=== PATIENT | male | born 1955 | race Caucasian/White ===

== ENCOUNTER 2020-11-04 03:18 | Inpatient (IN) ==
[2020-11-04 04:01] LABS: Eosinophils # (auto) 0.02 K/uL (0-0.5); Eosinophils % (auto) 0.1 %; Hematocrit (blood only) 45.7 % (42-52); Hemoglobin 16.9 g/dL (14.0-18.0); Immature Granulocytes # (auto) 0.03 K/uL (0.00-0.02); Immature Granulocytes % (auto) 0.2 %; Lymphocytes # (auto) 0.94 K/uL (1.2-3.4); Lymphocytes % (auto) 6.9 %; Mean Corpuscular Hemoglobin 32.9 pg (25-34); Mean Corpuscular Volume 88.9 fL (80-100); Mean Platelet Volume 8.9 fL (7.4-10.4); Monocytes # (auto) 0.76 K/uL (0.11-0.59); Monocytes % (auto) 5.5 %; Neutrophils # (auto) 11.97 K/uL (1.4-6.5); Neutrophils % (auto) 87.3 %; Platelet Count 173 K/uL (130-400); RDW Coefficient of Variation 13.1 % (11.5-14.5); RDW Standard Deviation 42.7 fL (36.4-46.3); Red Blood Count 5.14 M/uL (4.7-6.1); White Blood Count 13.72 K/uL (4.8-10.8)
--- NOTE | 2020-11-04 04:04 | Emergency Department Note ---
Impression & Plan Acute GI bleeding ED Provider Note NAME: VINOD LAND AGE: 65 SEX: M ARRIVES VIA: Walk-In INFORMANT: Patient and the patient's ED PROVIDER(S): Jesusita Padilla DO CHIEF COMPLAINT: Rectal bleeding PLAN: Disposition: Admitted to the [facility] service Condition: Stable MEDICAL DECISION MAKING: This is a 65-year-old male patient who presents to the emergency department with rectal bleeding. H/H is stable. Vital signs are stable. However, the patient continues to have persistent episodes of melena and bright red bleeding per rectum while here in the emergency department. The patient has never had a colonoscopy. He is on low-dose aspirin for his history of CABG and coronary artery disease. He does continue to smoke. [facility] for [facility] management. Triage Nursing notes reviewed and agree with them. Additional history obtained from the patient's is at the bedside Vital Signs: reviewed and remarkable for hypertension Differential diagnosis: Upper GI bleed, lower GI bleed, hemorrhoidal bleeding Diagnostics interpreted by me: Cardiac Monitoring: Normal sinus rhythm at a rate of 81 Laboratory studies: See below HPI: 65/M arrives for evaluation of rectal bleeding. The patient developed diarrhea 2 days ago. He had some associated crampy abdominal pain. Over the past 12-14 hours, with each diarrheal bowel movement, there was either bright red bleeding or melena as he describes the stooling. The patient is not incontinent of the stool. He does note that eating foods causes some belly pain. He has a decreased appetite and has been avoiding eating because of the pain. The patient does take a low-dose aspirin because of his history of coronary artery disease. He is a smoker. ROS: See above HPI for pertinent positives & negatives. A total of 10 systems reviewed and were otherwise negative. PAST MEDICAL HISTORY:Coronary artery disease; hypercholesterolemia PAST SURGICAL HISTORY:CABG FAMILY HISTORY:See Below SOCIAL HISTORY:Lives with his ; smokes; occasionally drinks alcohol; is retired HOME MEDICATIONS:See list ALLERGIES:None VITALS:See Below PHYSICAL EXAMINATION: HEENT: Head - normocephalic and atraumatic Pupils are equal, round, and reactive to light. Extraocular eye muscles are intact, and sclera are anicteric. Nose - moist nasal mucosa without discharge. Mouth - moist buccal mucosa. Oropharynx is nonerythematous and there is no tonsillar exudate or edema noted. Neck: Supple; no JVD or cervical lymphadenopathy Heart: Regular rate and rhythm. There is a normal S1 and S2 with no murmurs, clicks, or gallops appreciated. Lungs: Clear to auscultation bilaterally with no wheezes, rales, or rhonchi. Abdomen: Soft, completely nontender, nondistended, with good bowel sounds. There are no palpable pulsatile masses or hepatosplenomegaly. There is no guarding, rigidity, or rebound noted. Extremities: No evidence of cyanosis, clubbing, or edema. There are easily palpable peripheral pulses. Skin: warm and dry with good turgor and no rashes. Rectal: Some light brown stool but moderate amount of melena. ED COURSE: Times/Reassessments: 0330: The patient was evaluated in room C6. A complete history and physical was performed. An order was placed for continuous cardiac monitoring. The patient was in a normal sinus rhythm at a rate of 81. An IV lock was initiated and labs are drawn as above. The patient was typed and screened. The patient did have multiple episodes of diarrhea and bloody bowel movements. He remained hemodynamically stable. I discussed the case with the [facility] hospitalist and they will evaluate for further management. Jesusita Padilla DO Past Med/Surg History Social History Smoking Status: Current every day smoker Tobacco Type: Cigarettes Feels Safe at Home: Yes Allergies Allergies Allergy/AdvReac Type Severity Reaction Status Date / Time No Known Allergies Allergy Unknown Verified 12/17/08 17:50 Home Meds Home Medications Medication Instructions Recorded Confirmed Aspirin Enteric Coated (Ecotrin Or 81 mg PO DAILY #0 12/19/08 Generic *) Metoprolol Tartrate (Lopressor) 50 mg PO BID #0 12/19/08 (Lopressor) Nitroglycerin (Nitrostat) 0.4 mg UT PRN #0 12/19/08 Rosuvastatin Calcium (Crestor *) 10 mg PO HS #0 12/19/08 Results & Data (ED) Vital Signs Vital Signs - 24 hr 11/04/20 03:23 11/04/20 04:00 11/04/20 04:04 Temperature 36.9 C Temperature Source Temporal Artery Scan Pulse Rate 92 H 86 80 Pulse Rate from SpO2 Sensor 78 80 Respiratory Rate 16 17 14 Respiratory Effort / Characteristics Non-Labored Spontaneous Respiratory Depth Normal Blood Pressure 139/74 138/74 Blood Pressure Mean 95 95 Pulse Oximetry 96 93 94 Oxygen Delivery Method Room Air Sepsis Recent Fever Within 48 Hours No Sepsis New/Unexplained Change in Mental Status No Sepsis Action Taken by Nursing No Action Required 11/04/20 04:09 11/04/20 04:30 11/04/20 05:00 Temperature Temperature Source Pulse Rate 82 81 Pulse Rate from SpO2 Sensor 82 81 Respiratory Rate 16 15 Respiratory Effort / Characteristics Respiratory Depth Blood Pressure 158/79 H 168/99 H Blood Pressure Mean 105 122 Pulse Oximetry 95 95 96 Oxygen Delivery Method Room Air Sepsis Recent Fever Within 48 Hours Sepsis New/Unexplained Change in Mental Status Sepsis Action Taken by Nursing Laboratory Data Result diagrams: 11/04/20 03:46 11/04/20 03:46 Lab Results 11/04/20 11/04/20 11/04/20 Range/Units 03:46 03:46 03:46 WBC 13.72 H (4.8-10.8) K/uL RBC 5.14 (4.7-6.1) M/uL Hgb 16.9 (14.0-18.0) g/dL Hct 45.7 (42-52) % MCV 88.9 (80-100) fL MCH 32.9 (25-34) pg MCHC 37.0 H (32-36) g/dL RDW Std Deviation 42.7 (36.4-46.3) fL RDW Coeff of Reta 13.1 (11.5-14.5) % Plt Count 173 (130-400) K/uL MPV 8.9 (7.4-10.4) fL Immature Gran % (Auto) 0.2 % Neut % (Auto) 87.3 % Lymph % (Auto) 6.9 % [place] % (Auto) 5.5 % Eos % (Auto) 0.1 % Baso % (Auto) 0.0 % Neut # (Auto) 11.97 H (1.4-6.5) K/uL Lymph # (Auto) 0.94 L (1.2-3.4) K/uL [place] # (Auto) 0.76 H (0.11-0.59) K/uL Eos # (Auto) 0.02 (0-0.5) K/uL Baso # (Auto) 0.00 (0-0.2) K/uL Immature Gran # (Auto) 0.03 H (0.00-0.02) K/uL Sodium 137 (136-145) mmol/L Potassium 4.3 (3.5-5.1) mmol/L Chloride 108 H (98-107) mmol/L Carbon Dioxide 22 (21-32) mmol/L Anion Gap 7.0 (3-11) BUN 13 (7-18) mg/dl Creatinine 0.89 (0.6-1.4) mg/dl Est Cr Clr Drug Dosing 102.6 ml/min Est GFR ( Amer) 102.5 Est GFR (Non-Af Amer) 88.5 BUN/Creatinine Ratio 15.1 (10-20) Glucose 146 H (70-99) mg/dl Calcium 8.6 (8.5-10.1) mg/dl Magnesium 2.0 (1.8-2.4) mg/dl Total Bilirubin 0.7 (0.2-1) mg/dl AST 34 (15-37) U/L ALT 68 (12-78) U/L Alkaline Phosphatase 92 (45-117) U/L Total Protein 7.8 (6.4-8.2) gm/dl Albumin 3.8 (3.4-5.0) gm/dl Globulin 4.0 (2.5-4.0) gm/dl Albumin/Globulin Ratio 1.0 (0.9-2) Lipase 82 (73-393) U/L Urine Color Urine Appearance (Clear) Urine pH (4.5-7.5) Ur Specific [place] (1.000-1.030) Urine Protein (Negative) Urine Glucose (UA) (Negative) Urine Ketones (Negative) Urine Blood (Negative) Urine Nitrite (Negative) Urine Bilirubin (Negative) Urine Urobilinogen (Negative) Ur Leukocyte Esterase (Negative) Blood Type A Positive Antibody Screen NEGATIVE 11/04/20 Range/Units Unknown WBC (4.8-10.8) K/uL RBC (4.7-6.1) M/uL Hgb (14.0-18.0) g/dL Hct (42-52) % MCV (80-100) fL MCH (25-34) pg MCHC (32-36) g/dL RDW Std Deviation (36.4-46.3) fL RDW Coeff of Reta (11.5-14.5) % Plt Count (130-400) K/uL MPV (7.4-10.4) fL Immature Gran % (Auto) % Neut % (Auto) % Lymph % (Auto) % [place] % (Auto) % Eos % (Auto) % Baso % (Auto) % Neut # (Auto) (1.4-6.5) K/uL Lymph # (Auto) (1.2-3.4) K/uL [place] # (Auto) (0.11-0.59) K/uL Eos # (Auto) (0-0.5) K/uL Baso # (Auto) (0-0.2) K/uL Immature Gran # (Auto) (0.00-0.02) K/uL Sodium (136-145) mmol/L Potassium (3.5-5.1) mmol/L Chloride (98-107) mmol/L Carbon Dioxide (21-32) mmol/L Anion Gap (3-11) BUN (7-18) mg/dl Creatinine (0.6-1.4) mg/dl Est Cr Clr Drug Dosing ml/min Est GFR ( Amer) Est GFR (Non-Af Amer) BUN/Creatinine Ratio (10-20) Glucose (70-99) mg/dl Calcium (8.5-10.1) mg/dl Magnesium (1.8-2.4) mg/dl Total Bilirubin (0.2-1) mg/dl AST (15-37) U/L ALT (12-78) U/L Alkaline Phosphatase (45-117) U/L Total Protein (6.4-8.2) gm/dl Albumin (3.4-5.0) gm/dl Globulin (2.5-4.0) gm/dl Albumin/Globulin Ratio (0.9-2) Lipase (73-393) U/L Urine Color Dark Yellow Urine Appearance Clear (Clear) Urine pH 5.0 (4.5-7.5) Ur Specific [place] 1.030 (1.000-1.030) Urine Protein Negative (Negative) Urine Glucose (UA) Negative (Negative) Urine Ketones 1+ H (Negative) Urine Blood Negative (Negative) Urine Nitrite Negative (Negative) Urine Bilirubin Negative (Negative) Urine Urobilinogen Negative (Negative) Ur Leukocyte Esterase Negative (Negative) Blood Type Antibody Screen Administered Medications Sodium Chloride (Nss 1000ml) 1,000 mls @ 50 mls/hr IV .Q20H ONE Stop: 11/05/20 01:43 Last Admin: 11/04/20 06:03 Dose: 50 mls/hr Documented by: [id number] Discontinued Medications Metoprolol Tartrate (Metoprolol Tartrate 25 Mg Tab) 25 mg PO NOW STA Stop: 11/04/20 05:45 Last Admin: 11/04/20 06:02 Dose: 25 mg Documented by: [id number] Discharge Plan Visit Data Chief Complaint: Rectal Bleed Stated Complaint: BLEEDING AND PAIN ED Provider: Jesusita Padilla Discharge Problem: Acute GI bleeding Forms Stand Alone Forms: [facility] Prescriptions Prescriptions: No Action Rosuvastatin Calcium (Crestor *) 10 MG tablet 10 mg PO HS Qty: 0 RF: 0 Nitroglycerin (Nitrostat) 0.4 MG tablet 0.4 mg UT PRN Qty: 0 RF: 0 Metoprolol Tartrate (Lopressor) (Lopressor) 50 MG tablet 50 mg PO BID Qty: 0 RF: 0 Aspirin Enteric Coated (Ecotrin Or Generic *) 81 MG ENTERIC COATED TAB 81 mg PO DAILY Qty: 0 RF: 0
[2020-11-04 04:18] LABS: Albumin Level 3.8 gm/dl (3.4-5.0); BUN Creatinine Ratio 15.1 (10-20); Calcium 8.6 mg/dl (8.5-10.1); Creatinine Clr Calc Pharmacy 102.6 ml/min; Est GFR (African American) 102.5; Est GFR (Non-African American) 88.5; Potassium 4.3 mmol/L (3.5-5.1)
[2020-11-04 04:21] LABS: Bilirubin,Total 0.7 mg/dl (0.2-1); Total Protein 7.8 gm/dl (6.4-8.2)
[2020-11-04 05:27] LABS: Appearance Urine Clear (Clear); Bilirubin Urine Negative (Negative); Blood Urine Negative (Negative); Color Urine Dark Yellow; Glucose Urine UA Negative (Negative); Ketones Urine 1+ (Negative); Leukocyte Esterase Urine Negative (Negative); Nitrite Urine Negative (Negative); Protein Urine Negative (Negative); Urobilinogen Urine Negative (Negative)
[2020-11-04] MEDS ORDERED: PANTOPRAZOLE BOLUS/DRIP 1 EA IV STA (05:30)
[2020-11-04] MEDS ORDERED: PANTOprazole 80 MG in DEXTROSE 5% 100 ML IV STA (05:40)
[2020-11-04] MEDS ORDERED: SODIUM CHLORIDE 0.9% 1000ML 1,000 ML IV ONE (05:44)
[2020-11-04] MEDS ORDERED: METOPROLOL TARTRATE 25 MG TAB PO STA (05:44)
[2020-11-04] MEDS ORDERED: MoRPHine SULFATE 2 MG/ML CARP IV STA (07:01)
--- NOTE | 2020-11-04 07:09 | History & Physical Report ---
Date of Service November 04, 2020 Assessment & Plan (1) Acute GI bleeding: Recurrent colitis rule out C. difficile Rule out UGI B given dark stool description of the ER provider and history of GERD. Dark stools may just be from Pepto-Bismol Rx. Patient currently hemodynamically stable hx CAD status post CABG/PVD hypertension, slightly elevated hyperlipidemia on statin Rx Hyperglycemia rule out DM ongoing tobacco abuse. Medical telemetry Stool C. difficile Ceftriaxone, Flagyl IV PPI until UGI be ruled out Appropriate to hold home aspirin for now given GI bleed trend H&H, transfuse PRBC if hemoglobin less than 8 and or for symptomatic anemia GI consult Re: GI bleed Check hemoglobin A1c Nicotine patch DVT prophylaxis. TEDS (already GI bleed, SCDs contraindicated with history LE PAD) Full code Text document was generated using [employer] voice recognition software. It may contain grammatical or spelling errors. Kindly contact undersigned for clarification of any documentation item in question. History of Present Illness Chief Complaint: Bloody diarrhea Primary Care Provider: Dr. Jovel History obtained from patient and records. Medical history significant for CAD status post CABG, PVD, hypertension, hyperlipidemia, GERD, ongoing tobacco abuse. Last confinement 2008 for colitis. Few days history of watery diarrhea later with achy lower abdominal pain and nausea/dry heaving symptoms. Watery diarrhea later noted to be bloody. No fever, no chills. No chest pain. Usual S OB as per patient. No inordinate OTC NSAID intake. No recent antibiotic Rx/sick contacts/out-of-town travel/unusual food consumption. Patient medicated with Pepto-Bismol at home. At the ER, stools noted to be melanotic as per ER provider. Medical History as above No previous colonoscopies. Surgical History : CABG, vein harvesting Family History : Heart disease, DM Personal/Social history : 1/2 pack daily, occasional EtOH intake, retired grocery employee Allergies Allergy/AdvReac Type Severity Reaction Status Date / Time No Known Allergies Allergy Unknown Verified 11/04/20 07:10 Home Medications Medication Instructions Recorded Confirmed Type albuterol sulfate [Ventolin HFA] 2 puff INHALATION Q4H PRN 11/04/20 11/04/20 History aspirin [Adult Low Dose Aspirin] 81 mg PO QAM 11/04/20 11/04/20 History metoprolol tartrate [Lopressor] 50 mg PO QAM 11/04/20 11/04/20 History nitroglycerin [Nitrostat] 0.4 mg SUBLINGUAL UD 11/04/20 11/04/20 History rosuvastatin [Crestor] 40 mg PO QAM 11/04/20 11/04/20 History Past Med/Surg History Social History Smoking Status: Current every day smoker Tobacco Type: Cigarettes Feels Safe at Home: Yes Review of Systems Review of Systems: As per HPI, all 10 systems reviewed, all other ROS negative Physical Exam Physical Exam: GENERAL: Comfortable, pleasant, obese, no respiratory distress SKIN: Normal color, warm HEENT: Bespectacled, pink palpebral conjunctivae, no ptosis, dry buccal mucosa NECK : Supple, no tenderness CHEST : CTA, no tenderness HEART : RRR, no obvious murmurs ABDOMEN: Some distention, minimal hypogastric tenderness EXTREMITIES : No LE swelling/tenderness, no other conspicuous deformities noted NEUROLOGIC : Coherent, no facial asymmetry, no other gross focality Results & Data Results & Data ([facility]) Vital Signs (Past 12 Hours) Vital Signs Temp Pulse Resp BP Pulse Ox 11/04/20 06:30 83 14 95 11/04/20 06:02 85 27 H 129/74 94 11/04/20 06:01 91 H 13 96 11/04/20 05:30 87 13 97 11/04/20 05:00 81 15 168/99 H 96 11/04/20 04:30 82 16 158/79 H 95 11/04/20 04:09 95 11/04/20 04:04 80 14 94 11/04/20 04:00 86 17 138/74 93 11/04/20 03:23 36.9 C 92 H 16 139/74 96 Laboratory Results Laboratory Results WBC 13.72 K/uL (4.8-10.8) H 11/04/20 03:46 RBC 5.14 M/uL (4.7-6.1) 11/04/20 03:46 Hgb 16.9 g/dL (14.0-18.0) 11/04/20 03:46 Hct 45.7 % (42-52) 11/04/20 03:46 MCV 88.9 fL (80-100) 11/04/20 03:46 MCH 32.9 pg (25-34) 11/04/20 03:46 MCHC 37.0 g/dL (32-36) H 11/04/20 03:46 RDW Std Deviation 42.7 fL (36.4-46.3) 11/04/20 03:46 RDW Coeff of Reta 13.1 % (11.5-14.5) 11/04/20 03:46 Plt Count 173 K/uL (130-400) 11/04/20 03:46 MPV 8.9 fL (7.4-10.4) 11/04/20 03:46 Immature Gran % (Auto) 0.2 % 11/04/20 03:46 Neut % (Auto) 87.3 % 11/04/20 03:46 Lymph % (Auto) 6.9 % 11/04/20 03:46 [place] % (Auto) 5.5 % 11/04/20 03:46 Eos % (Auto) 0.1 % 11/04/20 03:46 Baso % (Auto) 0.0 % 11/04/20 03:46 Neut # (Auto) 11.97 K/uL (1.4-6.5) H 11/04/20 03:46 Lymph # (Auto) 0.94 K/uL (1.2-3.4) L 11/04/20 03:46 [place] # (Auto) 0.76 K/uL (0.11-0.59) H 11/04/20 03:46 Eos # (Auto) 0.02 K/uL (0-0.5) 11/04/20 03:46 Baso # (Auto) 0.00 K/uL (0-0.2) 11/04/20 03:46 Immature Gran # (Auto) 0.03 K/uL (0.00-0.02) H 11/04/20 03:46 Sodium 137 mmol/L (136-145) 11/04/20 03:46 Potassium 4.3 mmol/L (3.5-5.1) 11/04/20 03:46 Chloride 108 mmol/L (98-107) H 11/04/20 03:46 Carbon Dioxide 22 mmol/L (21-32) 11/04/20 03:46 Anion Gap 7.0 (3-11) 11/04/20 03:46 BUN 13 mg/dl (7-18) 11/04/20 03:46 Creatinine 0.89 mg/dl (0.6-1.4) 11/04/20 03:46 Est Cr Clr Drug Dosing 102.6 ml/min 11/04/20 03:46 Est GFR ( Amer) 102.5 11/04/20 03:46 Est GFR (Non-Af Amer) 88.5 11/04/20 03:46 BUN/Creatinine Ratio 15.1 (10-20) 11/04/20 03:46 Glucose 146 mg/dl (70-99) H 11/04/20 03:46 Calcium 8.6 mg/dl (8.5-10.1) 11/04/20 03:46 Magnesium 2.0 mg/dl (1.8-2.4) 11/04/20 03:46 Total Bilirubin 0.7 mg/dl (0.2-1) 11/04/20 03:46 AST 34 U/L (15-37) 11/04/20 03:46 ALT 68 U/L (12-78) 11/04/20 03:46 Alkaline Phosphatase 92 U/L (45-117) 11/04/20 03:46 Total Protein 7.8 gm/dl (6.4-8.2) 11/04/20 03:46 Albumin 3.8 gm/dl (3.4-5.0) 11/04/20 03:46 Globulin 4.0 gm/dl (2.5-4.0) 11/04/20 03:46 Albumin/Globulin Ratio 1.0 (0.9-2) 11/04/20 03:46 Lipase 82 U/L (73-393) 11/04/20 03:46 Urine Color Dark Yellow 11/04/20 Unknown Urine Appearance Clear (Clear) 11/04/20 Unknown Urine pH 5.0 (4.5-7.5) 11/04/20 Unknown Ur Specific [place] 1.030 (1.000-1.030) 11/04/20 Unknown Urine Protein Negative (Negative) 11/04/20 Unknown Urine Glucose (UA) Negative (Negative) 11/04/20 Unknown Urine Ketones 1+ (Negative) H 11/04/20 Unknown Urine Blood Negative (Negative) 11/04/20 Unknown Urine Nitrite Negative (Negative) 11/04/20 Unknown Urine Bilirubin Negative (Negative) 11/04/20 Unknown Urine Urobilinogen Negative (Negative) 11/04/20 Unknown Ur Leukocyte Esterase Negative (Negative) 11/04/20 Unknown COVID-19 Eval Order [facility] at [facility] 11/04/20 06:39 Blood Type A Positive 11/04/20 03:46 Antibody Screen NEGATIVE 11/04/20 03:[address] abdomen pelvis: 1. Long segment wall thickening of the colon with pericolonic infiltration which involves the majority of the colon. This represents a nonspecific colitis. 2. Extensive sigmoid diverticulosis. Mild pericolonic infiltration is likely related to the colitis rather than diverticulitis. No free air or abscess. 3. Hepatic steatosis. Chest x-ray : No significant change compared to the prior study. No acute process. EKG as per my interpretation : Rate 85, NSR, normal axis, incomplete RBBB, T wave abnormalities lateral and septal leads
[2020-11-04] MEDS ORDERED: OPTIRAY 320 100ml IV ONE (07:14)
[2020-11-04] MEDS: PANTOprazole 40 MG in DEXTROSE 5% 100 ML IV SCH ×2 (07:26→11:33)
[2020-11-04 07:36] LABS: Influenza A virus by PCR Negative (Neg); Influenza B virus by PCR Negative (Neg); RSV by PCR Negative (Neg); SARS CoV2 RNA(COVID-19) InHosp NEGATIVE (Negative)
--- NOTE | 2020-11-04 07:36 | CT Scan Report ---
CT OF THE ABDOMEN AND PELVIS WITH CONTRAST CLINICAL HISTORY: Abdominal pain. COMPARISON STUDY: CT of the abdomen and pelvis December 17, 2008. TECHNIQUE: Following IV administration of 90 mL of Optiray, axial images of the abdomen and pelvis we re obtained from the lung bases to the proximal femurs. Images were reviewed in the axial, sagittal, and coronal planes. IV contrast was administered without complication. Automated exposure control wa s utilized for the study. A dose lowering technique was utilized adhering to the principles of ALARA . CT DOSE: 1191.83 mGy.cm FINDINGS: Lung bases are unremarkable. No pneumatosis, free air or portal venous gas is present. Hepa tic steatosis is present. There is no biliary or pancreatic ductal dilatation. The spleen, adrenal gl ands and pancreas are unremarkable. There are numerous subcentimeter bilateral renal lesions which ar e too small to characterize. There is no evidence for a bowel obstruction. There is extensive sigmoid diverticulosis. There is long segment wall thickening which involves the majority of the colon. This is most pronounced within the ascending colon and transverse colon. There is mild pericolonic infilt ration. No free air or abscess is present. There is no hydronephrosis. No acute fracture or suspiciou s lesion is identified within visualized skeletal structures. Moderate atherosclerotic plaque is pres ent. IMPRESSION: 1. Long segment wall thickening of the colon with pericolonic infiltration which involves the majorit y of the colon. This represents a nonspecific colitis. 2. Extensive sigmoid diverticulosis. Mild pericolonic infiltration is likely related to the colitis r ather than diverticulitis. No free air or abscess. 3. Hepatic steatosis. ACT 112: Negative or not required by law. Electronically signed by: Jose Washington M.D. 11/04/2020 7:35 AM
[2020-11-04] MEDS ORDERED: metroNIDAZOLE 500 MG/100 ML BAG IV STA (07:45)
[2020-11-04 07:46] LABS: Estimated Average Glucose 123 mg/dl; Hemoglobin A1C 5.9 % (4.5-5.6)
--- NOTE | 2020-11-04 08:02 | XRay Report ---
XR chest 1V portable HISTORY: Shortness of breath. COMPARISON: 08/16/2006. FINDINGS: No pneumothorax. No pleural effusions. The heart is normal in size. There are poststernotom y changes. No new focal lung consolidations to suggest pneumonia. No evidence for pulmonary edema. IMPRESSION: No significant change compared to the prior study. No acute process. ACT 112: Negative or not required by law. Electronically signed by: Javier Salmon M.D. 11/04/2020 8:01 AM
[2020-11-04] MEDS ORDERED: PROMETHAZINE HCL 12.5 MG in SODIUM CHLORIDE 0.9% 50 ML IV PRN (09:37)
[2020-11-04] MEDS ORDERED: ACETAMINOPHEN 325 MG TAB PO PRN (09:37)
[2020-11-04] MEDS ORDERED: LORazepam 0.5 MG/1 ML VIAL IV PRN (09:37)
[2020-11-04] MEDS: MoRPHine SULFATE 4 MG/ML 1 ML CARP\\VIAL IV PRN ×3 (09:54→20:19)
[2020-11-04] MEDS ORDERED: NICOTINE 14 MG/24 HR PATCH TD ONE (10:00)
[2020-11-04] MEDS ORDERED: cefTRIAXone SODIUM 2,000 MG in DEXTROSE 5% 50 ML IV SCH (10:00)
--- NOTE | 2020-11-04 10:34 | Gastrointestinal Consultation ---
Date of Consultation November 04, 2020 Assessment & Plan (1) Acute GI bleeding: (2) Diarrhea: Pt is a 65 y/o male w bloody diarrhea and leukocytosis but normal blood ct, BUN; CT w contrast showed non specific colitis, Cdiff negative. DDx: infectious vs inflammatory, ischemic colitis - IVF support - Cipro/Flagyl IV antibx - Check stool cx - Less likely suspect UGI bleed ? melena noted related to Peptobismol use yesterday turning stool blackish in color - Plan for outpt colonoscopy in 4-6 weeks Supervising Physician Co-Signing Physician Notes I performed a history and physical examination of the patient today, including specifically on physical exam - soft abdomen. I have discussed the patient's management with the advanced practitioner. Please refer to the nurse practitioner's note for the documented findings and plan of care. Likely infectious etiology of his colitis. Need to r/o IBD. ABx for now. Colonoscopy as OP in 2-3 weeks. Recall GI if needed. History of Present Illness Reason for Consultation: GI bleeding Requesting Physician: Dr. Jin Pearl Attending Physician: Dr. Maureen Sanchez History of Present Illness Pt is a 65 y/o male w hx of cardiac bypass surgery, HTN, HLD who presented to ED w c/o bloody diarrhea. Started to have diarrhea 2 days ago, associated w lower abd pain/cramping, dry heaving but denies any fever, chills. He had initially BRBPR but then blood progressively turn darker in color. He did take Peptobismol yesterday in attempt to control diarrhea as he felt he's having BM every hour. Rectal exam in ED showed light brown stool w ? melena. Labs w mild leukocytosis WBC 13, normal H/H, normal BUN, Cr, LFTs, lipase. Cdiff was negative. Stool cx not obtained. CT abd/pelvis w contrast showed long segment wall thickening of the colon with pericolonic infiltration which involves the majority of the colon. This represents a nonspecific colitis; extensive sigmoid diverticulosis. Mild pericolonic infiltration is likely related to the colitis rather than diverticulitis. No free air or abscess. He had similar symptoms during his hospitalization in 2008. Recommended to have colonoscopy then but never had it done. He denies sick contact, travels, consumption of undercooked/raw foods Denies family hx of IBD, colorectal ca He takes ASA 81mg daily. He takes Ibuprofen 6 tabs recently. Is a tobacco smoker, some ETOH use. Allergies Allergy/AdvReac Type Severity Reaction Status Date / Time No Known Allergies Allergy Unknown Verified 11/04/20 07:10 Home Medications Medication Instructions Recorded Confirmed Type albuterol sulfate [Ventolin HFA] 2 puff INHALATION Q4H PRN 11/04/20 11/04/20 History aspirin [Adult Low Dose Aspirin] 81 mg PO QAM 11/04/20 11/04/20 History metoprolol tartrate [Lopressor] 50 mg PO QAM 11/04/20 11/04/20 History nitroglycerin [Nitrostat] 0.4 mg SUBLINGUAL UD 11/04/20 11/04/20 History rosuvastatin [Crestor] 40 mg PO QAM 11/04/20 11/04/20 History Patient History Social History Smoking Status: Current every day smoker Tobacco Type: Cigarettes Cigarettes Per Day: 10; Second Hand Exposure: No; Tobacco Cessation Education Requested by Patient: No Hx Substance Use: No Preferred Language: Tunisian Communication Ability: Effective Beliefs That Will Affect Care: None Current Living Situation: Spouse Other Information That Helps Us Care for You: No Feels Safe at Home: Yes Safety Concerns: Feels Safe At This Time Assistive Devices: Glasses Review of Systems Review of Systems: All systems reviewed & are unremarkable except as noted in HPI & below Constitutional: no fever, no chills, no fatigue and no weight loss Eyes: no eye pain and no worsening vision Ear, Nose, Mouth, Throat: no tinnitus, no dizziness, no nasal discharge and no epistaxis Respiratory: no cough, no dyspnea, no dyspnea on exertion and no wheezing Cardiovascular: no chest pain, no orthopnea, no palpitations and no edema Gastrointestinal: as per Subjective / HPI Musculoskeletal: no stiffness and no myalgia Neurologic: no localized weakness, no paralysis, no tremor(s) and no headache(s) Endocrine: no polydipsia and no polyuria Hematologic / Lymphatic: no easy bleeding and no night sweats Physical Exam Constitutional: WD/WN, vitals as above well groomed, cooperative and comfortable Eyes: PERRL, conjunctivae normal, anicteric sclerae ENMT: external ear and nose normal, oropharynx normal Respiratory: normal respiratory effort, lungs clear to auscultation Cardiovascular: RRR, no murmur, no edema Gastrointestinal (Abdomen): Inspection/Auscultation: + hypoactive bowel sounds Percussion/Palpation: + abdomen tender (across lower abd, RUQ ) and abdomen soft Skin: no rashes, warm and dry no jaundice Psychiatric: A+Ox3, euthymic affect Lymphatic: no lymphedema Results & Data ([facility]) Vital Signs (Past 12 Hours) Vital Signs Temp Pulse Pulse Resp BP BP Pulse Ox 11/04/20 10:00 73 11/04/20 09:40 36.4 C L 75 18 142/78 H 97 11/04/20 08:30 70 18 120/74 94 11/04/20 08:21 77 18 117/83 94 11/04/20 08:00 71 18 117/83 93 11/04/20 07:30 77 20 150/90 H 95 11/04/20 06:30 83 14 95 11/04/20 06:02 85 27 H 129/74 94 11/04/20 06:01 91 H 13 96 11/04/20 05:30 87 13 97 11/04/20 05:00 81 15 168/99 H 96 11/04/20 04:30 82 16 158/79 H 95 11/04/20 04:09 95 11/04/20 04:04 80 14 94 11/04/20 04:00 86 17 138/74 93 11/04/20 03:23 36.9 C 92 H 16 139/74 96
[2020-11-04 11:05] LABS: Hematocrit (blood only) 44.4 % (42-52); Hemoglobin 16.5 g/dL (14.0-18.0)
[2020-11-04] MEDS: CIPROFLOXACIN / D5W 400 MG/200 ML BAG IV SCH ×2 (11:36→22:08)
--- NOTE | 2020-11-04 12:22 | Electrocardiogram Report ---
Test Reason : Blood Pressure : / mmHG Vent. Rate : 085 BPM Atrial Rate : 085 BPM P-R Int : 158 ms QRS Dur : 092 ms QT Int : 390 ms P-R-T Axes : 053 016 076 degrees QTc Int : 464 ms Normal sinus rhythm Incomplete right bundle branch block Nonspecific ST abnormality Borderline ECG When compared with ECG of 17-DEC-2008 09:33, No significant change was found Confirmed by Joce Hopper ([id number]) on 11/04/2020 12:21:50 PM Referred By: REFERRED SELF Confirmed By:Wong Hopper
[2020-11-04] MEDS ORDERED: metroNIDAZOLE 500 MG/100 ML BAG IV SCH (13:00)
--- NOTE | 2020-11-04 16:12 | Hospitalist Progress Note ---
Date of Service November 04, 2020 Assessment & Plan (1) Hematochezia: No persistent hematochezia. Abdomen is soft and nontender. Hemodynamically stable. Tracking H&H. Gastroenterology opinion is this is likely an infectious etiology but IBD needs to be ruled out. Continue Cipro Flagyl for now and plan for outpatient colonoscopy in 2 to 3 weeks. Protonix drip was stopped. Diet will be advanced to regular in the a.m. (2) Colitis: Plan as above. (3) CAD (coronary artery disease): Chronic, stable. Patient is very functional including reports that he was remodeling his house when he got sick just 2 days ago. Continue medical management including aspirin, Lopressor, Crestor. (4) DVT prophylaxis: Hold chemoprophylaxis in setting of possible hematochezia/bleeding Full code Disposition-to home in next 1 to 2 days. Admission and Anticipated Discharge Date Admission Date: November 04, 2020 Subjective 65-year-old man presents with short-term left-sided abdominal pain. Found to have colitis on imaging. Pain is severe but is controlled with morphine per patient. He is hungry and is asking to have more solid foods. Tolerating antibiotic therapy but does not feel much improvement with respect to pain since admission. Review of Systems Review of Systems: All systems reviewed & are unremarkable except as noted in Subjective Physical Exam Physical Exam: CONSTITUTIONAL: WNWD, vitals as above, generally ill- appearing, NAD EYES: normal conjunctivae, no scleral icterus ENT: external ear and nose normal, MMM RESPIRATORY: clear to auscultation bilaterally, no crackles, rales or wheezes, normal respiratory effort CARDIOVASCULAR: regular rate and rhythm, S1 and 2 heard without murmurs, gallops or rubs, no JVD, no peripheral edema GASTROINTESTINAL: soft, TTP on LUQ/LLQ, no distension. MUSCULOSKELETAL: strength 5/5 throughout, head is normocephalic and atraumatic SKIN: warm and dry NEUROLOGIC: CN 2-12 grossly intact, no sensory deficit, normal cognition, normal speech, no tremor PSYCHIATRIC: alert cooperative and oriented to person, place and time. Results & Data Results & Data ([facility]) Vital Signs (Past 12 Hours) Vital Signs Temp Pulse Pulse Resp BP BP Pulse Ox 11/04/20 15:54 36.9 C 80 18 144/83 H 96 11/04/20 15:09 70 04/22/21 11:24 37.1 C 67 19 144/74 H 95 11/04/20 10:00 73 11/04/20 09:40 36.4 C L 75 18 142/78 H 97 11/04/20 08:30 70 18 120/74 94 11/04/20 08:21 77 18 117/83 94 11/04/20 08:00 71 18 117/83 93 11/04/20 07:30 77 20 150/90 H 95 11/04/20 06:30 83 14 95 11/04/20 06:02 85 27 H 129/74 94 11/04/20 06:01 91 H 13 96 11/04/20 05:30 87 13 97 11/04/20 05:00 81 15 168/99 H 96 11/04/20 04:30 82 16 158/79 H 95 Laboratory Results Short CBC 11/04/20 11/04/20 Range/Units 03:46 10:50 WBC 13.72 H (4.8-10.8) K/uL Hgb 16.9 16.5 (14.0-18.0) g/dL Hct 45.7 44.4 (42-52) % Plt Count 173 (130-400) K/uL BMP 11/04/20 03:46 Sodium 137 Potassium 4.3 Chloride 108 H Carbon Dioxide 22 BUN 13 Creatinine 0.89 Glucose 146 H Calcium 8.6 Liver Function 11/04/20 Range/Units 03:46 Total Bilirubin 0.7 (0.2-1) mg/dl AST 34 (15-37) U/L ALT 68 (12-78) U/L Alkaline Phosphatase 92 (45-117) U/L Albumin 3.8 (3.4-5.0) gm/dl Urine 11/04/20 Range/Units Unknown Urine Color Dark Yellow Urine Appearance Clear (Clear) Urine pH 5.0 (4.5-7.5) Ur Specific [place] 1.030 (1.000-1.030) Urine Protein Negative (Negative) Urine Glucose (UA) Negative (Negative)
[2020-11-04] MEDS: metroNIDAZOLE 500 MG/100 ML BAG IV SCH (17:43)
[2020-11-04] MEDS: METOPROLOL TARTRATE 25 MG TAB PO SCH (20:11)
[2020-11-04] MEDS: PANTOprazole 40 MG TAB PO SCH (20:12)
[2020-11-04] MEDS: SODIUM CHLORIDE 0.9% 1000ML 1,000 ML IV SCH (22:08)
[2020-11-05] MEDS ORDERED: SODIUM CHLORIDE 0.9% 1000ML 1,000 ML IV SCH (01:45)
[2020-11-05] MEDS: metroNIDAZOLE 500 MG/100 ML BAG IV SCH ×2 (02:31→09:47)
[2020-11-05] MEDS: SODIUM CHLORIDE 0.9% 1000ML 1,000 ML IV SCH (05:33)
[2020-11-05 08:22] LABS: Basophils # (auto) 0.01 K/uL (0-0.2); Basophils % (auto) 0.1 %; Eosinophils # (auto) 0.04 K/uL (0-0.5); Eosinophils % (auto) 0.4 %; Hematocrit (blood only) 44.5 % (42-52); Hemoglobin 16.3 g/dL (14.0-18.0); Immature Granulocytes # (auto) 0.01 K/uL (0.00-0.02); Immature Granulocytes % (auto) 0.1 %; Lymphocytes # (auto) 1.22 K/uL (1.2-3.4); Mean Corpuscular Hemoglobin 32.3 pg (25-34); Mean Corpuscular Hgb Conc 36.6 g/dL (32-36); Mean Corpuscular Volume 88.3 fL (80-100); Mean Platelet Volume 8.7 fL (7.4-10.4); Monocytes # (auto) 0.89 K/uL (0.11-0.59); Neutrophils # (auto) 8.94 K/uL (1.4-6.5); Neutrophils % (auto) 80.4 %; Platelet Count 157 K/uL (130-400); RDW Coefficient of Variation 13.4 % (11.5-14.5); RDW Standard Deviation 43.6 fL (36.4-46.3); Red Blood Count 5.04 M/uL (4.7-6.1); White Blood Count 11.11 K/uL (4.8-10.8)
[2020-11-05] MEDS: PANTOprazole 40 MG TAB PO SCH ×2 (08:36→21:19)
[2020-11-05] MEDS: NICOTINE 14 MG/24 HR PATCH TD SCH (08:36)
[2020-11-05] MEDS: METOPROLOL TARTRATE 25 MG TAB PO SCH ×2 (08:36→21:18)
[2020-11-05] MEDS: MoRPHine SULFATE 4 MG/ML 1 ML CARP\\VIAL IV PRN ×2 (08:45→15:10)
[2020-11-05 08:54] LABS: BUN Creatinine Ratio 16.4 (10-20); Calcium 8.4 mg/dl (8.5-10.1); Creatinine Clr Calc Pharmacy 121.4 ml/min; Est GFR (Non-African American) 94.9; Potassium 3.9 mmol/L (3.5-5.1)
[2020-11-05] MEDS: ASPIRIN 81 MG ECTAB PO SCH (08:59)
[2020-11-05] MEDS: ROSUVASTATIN CALCIUM 20 MG TAB PO SCH (08:59)
[2020-11-05] MEDS ORDERED: METOPROLOL TARTRATE 50 MG TAB PO SCH (09:00)
[2020-11-05] MEDS: CIPROFLOXACIN / D5W 400 MG/200 ML BAG IV SCH (10:59)
--- NOTE | 2020-11-05 12:36 | Hospitalist Progress Note ---
Date of Service November 05, 2020 Assessment & Plan (1) Hematochezia: No persistent hematochezia. Abdomen is soft and nontender. Hemodynamically stable. Hemoglobin stable. Gastroenterology opinion is this is likely an infectious etiology but IBD needs to be ruled out. Stool studies are currently negative for infection. Continue Cipro Flagyl for now (changed to PO) and plan for outpatient colonoscopy in 2 to 3 weeks. Protonix drip was stopped. tolerating regular diet. (2) Colitis: Plan as above. (3) CAD (coronary artery disease): Chronic, stable. Patient is very functional including reports that he was remodeling his house when he got sick just 2 days ago. Continue medical management including aspirin, Lopressor, Crestor. (4) DVT prophylaxis: Hold chemoprophylaxis in setting of possible hematochezia/bleeding Full code Disposition-to home in am as long as pain is well controlled. Alma Bauman DO [facility] Hospitalist Admission and Anticipated Discharge Date Admission Date: November 04, 2020 Subjective 65-year-old man presents with short-term left-sided abdominal pain. Found to have colitis on imaging. Pain improved today but still requiring morphine IV Stool studies are negative (c diff and stool culture) This happened to him one time in the past approx ten years ago tolerating regular food Review of Systems Review of Systems: All systems reviewed & are unremarkable except as noted in Subjective Physical Exam Physical Exam: CONSTITUTIONAL: WNWD, vitals as above, generally ill- appearing, NAD EYES: normal conjunctivae, no scleral icterus ENT: external ear and nose normal, MMM RESPIRATORY: clear to auscultation bilaterally, no crackles, rales or wheezes, normal respiratory effort CARDIOVASCULAR: regular rate and rhythm, S1 and 2 heard without murmurs, gallops or rubs, no JVD, no peripheral edema GASTROINTESTINAL: soft, TTP on LUQ/LLQ that is improved, no distension. MUSCULOSKELETAL: strength 5/5 throughout, head is normocephalic and atraumatic SKIN: warm and dry NEUROLOGIC: CN 2-12 grossly intact, no sensory deficit, normal cognition, normal speech, no tremor PSYCHIATRIC: alert cooperative and oriented to person, place and time. Results & Data Results & Data ([facility]) Vital Signs (Past 12 Hours) Vital Signs Temp Pulse Pulse Resp BP Pulse Ox 11/05/20 12:03 36.9 C 66 16 125/73 94 11/05/20 08:00 74 11/05/20 07:49 36.8 C 71 16 125/80 95 11/05/20 04:46 36.5 C 74 20 128/79 95 Laboratory Results Short CBC 11/05/20 Range/Units 07:55 WBC 11.11 H (4.8-10.8) K/uL Hgb 16.3 (14.0-18.0) g/dL Hct 44.5 (42-52) % Plt Count 157 (130-400) K/uL BMP 11/05/20 07:55 Sodium 136 Potassium 3.9 Chloride 106 Carbon Dioxide 23 BUN 12 Creatinine 0.75 Glucose 108 H Calcium 8.4 L Medications Administered Current Inpatient Medications Acetaminophen (Acetaminophen 325 Mg Tab) 650 mg PO Q4H PRN PRN Reason: Pain or Fever Stop: 12/04/20 09:36 Aspirin (Aspirin 81 Mg Ectab) [facility] [place]: 12/05/20 08:59 Last Admin: 11/05/20 08:59 Dose: 81 mg Documented by: Lorazepam (Ativan) 0.5 mg in 1 mls @ 1 mls/min IV Q4H PRN PRN Reason: Anxiety/Agitation Stop: 12/04/20 09:36 Promethazine HCl 12.5 mg/ (Sodium Chloride) 50.5 mls @ 202 mls/hr IV Q6H PRN PRN Reason: Nausea And Vomiting Stop: 12/04/20 09:36 Metronidazole (Flagyl) 500 mg in 100 mls @ 100 mls/hr IV Q8H [facility] Stop: 11/14/20 17:59 Last Infusion: 11/05/20 10:59 Dose: Infused Documented by: Ciprofloxacin (Cipro / D5w) 400 mg in 200 mls @ 100 mls/hr IV Q12H [facility]; Protocol Stop: 11/14/20 10:59 Last Admin: 11/05/20 10:59 Dose: 100 mls/hr Documented by: Sodium Chloride (Nss 1000ml) 1,000 mls @ 125 mls/hr IV .Q8H [facility] Stop: 11/05/20 12:44 Last Admin: 11/05/20 05:33 Dose: 125 mls/hr Documented by: Metoprolol Tartrate (Metoprolol Tartrate 25 Mg Tab) 25 mg PO BID [facility] Stop: 12/04/20 20:59 Last Admin: 11/05/20 08:36 Dose: 25 mg Documented by: Miscellaneous (Remove Nicoderm Patch) 1 ea N/A DAILY@0859 [facility] Stop: 12/04/20 09:36 Last Admin: 11/05/20 08:35 Dose: 1 ea Documented by: Morphine Sulfate (Morphine Sulfate 4 Mg/Ml 1 Ml Carp\Vial) 4 mg IV Q4H PRN PRN Reason: Pain Stop: 11/18/20 09:36 Last Admin: 11/05/20 08:45 Dose: 4 mg Documented by: Nicotine (Nicotine 14 Mg/24 Hr Patch) 14 mg TD QAM [facility] Stop: 12/05/20 08:59 Last Admin: 11/05/20 08:36 Dose: 14 mg Documented by: Pantoprazole Sodium (Pantoprazole 40 Mg Tab) 40 mg PO BID [facility] Stop: 12/04/20 20:59 Last Admin: 11/05/20 08:36 Dose: 40 mg Documented by: Rosuvastatin Calcium (Rosuvastatin Calcium 20 Mg Tab) 40 mg PO QAM [facility] Stop: 12/05/20 08:59 Last Admin: 11/05/20 08:59 Dose: 40 mg Documented by:
[2020-11-05] MEDS ORDERED: ACETAMINOPHEN W/CODEINE #3 1 TAB PO PRN (16:28)
[2020-11-05] MEDS: CIPROFLOXACIN 500 MG TAB PO SCH (21:17)
[2020-11-05] MEDS: metroNIDAZOLE 500 MG TAB PO SCH (21:18)
[2020-11-06] MEDS: ROSUVASTATIN CALCIUM 20 MG TAB PO SCH (07:49)
[2020-11-06] MEDS: ASPIRIN 81 MG ECTAB PO SCH (07:49)
[2020-11-06] MEDS: metroNIDAZOLE 500 MG TAB PO SCH (07:49)
[2020-11-06] MEDS: METOPROLOL TARTRATE 25 MG TAB PO SCH (07:49)
[2020-11-06] MEDS: CIPROFLOXACIN 500 MG TAB PO SCH (07:50)
[2020-11-06] MEDS: NICOTINE 14 MG/24 HR PATCH TD SCH (07:50)
[2020-11-06] MEDS: PANTOprazole 40 MG TAB PO SCH (08:24)
--- NOTE | 2020-11-06 11:02 | Discharge Summary ---
Date of Service November 06, 2020 Admission HPI Per Admitting Provider History obtained from patient and records. Medical history significant for CAD status post CABG, PVD, hypertension, hyperlipidemia, GERD, ongoing tobacco abuse. Last confinement 2008 for colitis. Few days history of watery diarrhea later with achy lower abdominal pain and nausea/dry heaving symptoms. Watery diarrhea later noted to be bloody. No fever, no chills. No chest pain. Usual S OB as per patient. No inordinate OTC NSAID intake. No recent antibiotic Rx/sick contacts/out-of-town travel/unusual food consumption. Patient medicated with Pepto-Bismol at home. At the ER, stools noted to be melanotic as per ER provider. Medical History as above No previous colonoscopies. Surgical History : CABG, vein harvesting Family History : Heart disease, DM Personal/Social history : 1/2 pack daily, occasional EtOH intake, retired grocery employee Admission Exam Per Admitting Provider GENERAL: Comfortable, pleasant, obese, no respiratory distress SKIN: Normal color, warm HEENT: Bespectacled, pink palpebral conjunctivae, no ptosis, dry buccal mucosa NECK : Supple, no tenderness CHEST : CTA, no tenderness HEART : RRR, no obvious murmurs ABDOMEN: Some distention, minimal hypogastric tenderness EXTREMITIES : No LE swelling/tenderness, no other conspicuous deformities noted NEUROLOGIC : Coherent, no facial asymmetry, no other gross focality Principal Diagnosis colitis-uncertain etiology, improved hematochezia smoking Discharge Exam CONSTITUTIONAL: WNWD, vitals as above, generally ill-appearing, NAD EYES: normal conjunctivae, no scleral icterus ENT: external ear and nose normal, MMM RESPIRATORY: clear to auscultation bilaterally, no crackles, rales or wheezes, normal respiratory effort CARDIOVASCULAR: regular rate and rhythm, S1 and 2 heard without murmurs, gall ops or rubs, no JVD, no peripheral edema GASTROINTESTINAL: soft, TTP in suprapubic area and RLQ. No pain in left side or epigastric area today. no guarding. MUSCULOSKELETAL: strength 5/5 throughout, head is normocephalic and atraumatic. Ambulating independently. SKIN: warm and dry NEUROLOGIC: CN 2-12 grossly intact, no sensory deficit, normal cognition, normal speech, no tremor PSYCHIATRIC: alert cooperative and oriented to person, place and time. Discharge Data Allergies Allergy/AdvReac Type Severity Reaction Status Date / Time No Known Allergies Allergy Unknown Verified 11/04/20 07:10 Consultations 11/04/20 05:23 ED Decision to Admit Stat 11/04/20 09:37 Consult Gastroenterology Routine Ordered Studies Laboratory Results WBC 11.11 K/uL (4.8-10.8) H 11/05/20 07:55 RBC 5.04 M/uL (4.7-6.1) 11/05/20 07:55 Hgb 16.3 g/dL (14.0-18.0) 11/05/20 07:55 Hct 44.5 % (42-52) 11/05/20 07:55 MCV 88.3 fL (80-100) 11/05/20 07:55 MCH 32.3 pg (25-34) 11/05/20 07:55 MCHC 36.6 g/dL (32-36) H 11/05/20 07:55 RDW Std Deviation 43.6 fL (36.4-46.3) 11/05/20 07:55 RDW Coeff of Reta 13.4 % (11.5-14.5) 11/05/20 07:55 Plt Count 157 K/uL (130-400) 11/05/20 07:55 MPV 8.7 fL (7.4-10.4) 11/05/20 07:55 Immature Gran % (Auto) 0.1 % 11/05/20 07:55 Neut % (Auto) 80.4 % 11/05/20 07:55 Lymph % (Auto) 11.0 % 11/05/20 07:55 [place] % (Auto) 8.0 % 11/05/20 07:55 Eos % (Auto) 0.4 % 11/05/20 07:55 Baso % (Auto) 0.1 % 11/05/20 07:55 Neut # (Auto) 8.94 K/uL (1.4-6.5) H 11/05/20 07:55 Lymph # (Auto) 1.22 K/uL (1.2-3.4) 11/05/20 07:55 [place] # (Auto) 0.89 K/uL (0.11-0.59) H 11/05/20 07:55 Eos # (Auto) 0.04 K/uL (0-0.5) 11/05/20 07:55 Baso # (Auto) 0.01 K/uL (0-0.2) 11/05/20 07:55 Immature Gran # (Auto) 0.01 K/uL (0.00-0.02) 11/05/20 07:55 Sodium 136 mmol/L (136-145) 11/05/20 07:55 Potassium 3.9 mmol/L (3.5-5.1) 11/05/20 07:55 Chloride 106 mmol/L (98-107) 11/05/20 07:55 Carbon Dioxide 23 mmol/L (21-32) 11/05/20 07:55 Anion Gap 7.0 (3-11) 11/05/20 07:55 BUN 12 mg/dl (7-18) 11/05/20 07:55 Creatinine 0.75 mg/dl (0.6-1.4) 11/05/20 07:55 Est Cr Clr Drug Dosing 121.4 ml/min 11/05/20 07:55 Est GFR ( Amer) 110.0 11/05/20 07:55 Est GFR (Non-Af Amer) 94.9 11/05/20 07:55 BUN/Creatinine Ratio 16.4 (10-20) 11/05/20 07:55 Glucose 108 mg/dl (70-99) H 11/05/20 07:55 Estimat Average Glucose 123 mg/dl 11/04/20 03:46 Hemoglobin A1c 5.9 % (4.5-5.6) H 11/04/20 03:46 Calcium 8.4 mg/dl (8.5-10.1) L 11/05/20 07:55 Magnesium 2.0 mg/dl (1.8-2.4) 11/04/20 03:46 Total Bilirubin 0.7 mg/dl (0.2-1) 11/04/20 03:46 AST 34 U/L (15-37) 11/04/20 03:46 ALT 68 U/L (12-78) 11/04/20 03:46 Alkaline Phosphatase 92 U/L (45-117) 11/04/20 03:46 Total Protein 7.8 gm/dl (6.4-8.2) 11/04/20 03:46 Albumin 3.8 gm/dl (3.4-5.0) 11/04/20 03:46 Globulin 4.0 gm/dl (2.5-4.0) 11/04/20 03:46 Albumin/Globulin Ratio 1.0 (0.9-2) 11/04/20 03:46 Lipase 82 U/L (73-393) 11/04/20 03:46 Urine Color Dark Yellow 11/04/20 Unknown Urine Appearance Clear (Clear) 11/04/20 Unknown Urine pH 5.0 (4.5-7.5) 11/04/20 Unknown Ur Specific [place] 1.030 (1.000-1.030) 11/04/20 Unknown Urine Protein Negative (Negative) 11/04/20 Unknown Urine Glucose (UA) Negative (Negative) 11/04/20 Unknown Urine Ketones 1+ (Negative) H 11/04/20 Unknown Urine Blood Negative (Negative) 11/04/20 Unknown Urine Nitrite Negative (Negative) 11/04/20 Unknown Urine Bilirubin Negative (Negative) 11/04/20 Unknown Urine Urobilinogen Negative (Negative) 11/04/20 Unknown Ur Leukocyte Esterase Negative (Negative) 11/04/20 Unknown Stl C. diff Tox B Gene Negative Cdiff Gene (Neg) 11/04/20 06:39 COVID-19 Eval Order CovFluRsv at [facility] 11/04/20 06:39 SARS-CoV-2 (PCR) NEGATIVE (Negative) 11/04/20 06:39 Influenza Type A (PCR) Negative (Neg) 11/04/20 06:39 Influenza Type B (PCR) Negative (Neg) 11/04/20 06:39 RSV (RT-PCR) Negative (Neg) 11/04/20 06:39 Blood Type A Positive 11/04/20 03:46 Antibody Screen NEGATIVE 11/04/20 03:46 Impressions Abdomen/Pelvis CT 11/04/20 06:31 CT OF THE ABDOMEN AND PELVIS WITH CONTRAST CLINICAL HISTORY: Abdominal pain. COMPARISON STUDY: CT of the abdomen and pelvis December 17, 2008. TECHNIQUE: Following IV administration of 90 mL of Optiray, axial images of the abdomen and pelvis were obtained from the lung bases to the proximal femurs. Images were reviewed in the axial, sagittal, and coronal planes. IV contrast was administered without complication. Automated exposure control was utilized for the study. A dose lowering technique was utilized adhering to the principles of ALARA. CT DOSE: 1191.83 mGy.cm FINDINGS: Lung bases are unremarkable. No pneumatosis, free air or portal venous gas is present. Hepatic steatosis is present. There is no biliary or pancreatic ductal dilatation. The spleen, adrenal glands and pancreas are unremarkable. There are numerous subcentimeter bilateral renal lesions which are too small to characterize. There is no evidence for a bowel obstruction. There is extensive sigmoid diverticulosis. There is long segment wall thickening which involves the majority of the colon. This is most pronounced within the ascending colon and transverse colon. There is mild pericolonic infiltration. No free air or abscess is present. There is no hydronephrosis. No acute fracture or suspicious lesion is identified within visualized skeletal structures. Moderate atherosclerotic plaque is present. IMPRESSION: 1. Long segment wall thickening of the colon with pericolonic infiltration which involves the majority of the colon. This represents a nonspecific colitis. 2. Extensive sigmoid diverticulosis. Mild pericolonic infiltration is likely related to the colitis rather than diverticulitis. No free air or abscess. 3. Hepatic steatosis. ACT 112: Negative or not required by law. Electronically signed by: Jose Washington M.D. 11/04/2020 7:35 AM Chest X-Ray 11/04/20 06:31 XR chest 1V portable HISTORY: Shortness of breath. COMPARISON: 08/16/2006. FINDINGS: No pneumothorax. No pleural effusions. The heart is normal in size. There are poststernotomy changes. No new focal lung consolidations to suggest pneumonia. No evidence for pulmonary edema. IMPRESSION: No significant change compared to the prior study. No acute process. ACT 112: Negative or not required by law. Electronically signed by: Javier Salmon M.D. 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 He was initially placed on a Protonix drip and admitted to the hospitalist service. C. difficile and stool culture were negative. A CT of the abdomen and pelvis with contrast revealed wall thickening of the colon with pericolonic infiltration involving the majority of the colon representing a nonspecific colitis. Extensive sigmoid diverticulosis was noted. Gastroenterology was consulted and recommended follow-up as outpatient for colonoscopy in 2 to 3 weeks to rule out inflammatory bowel disease. He was placed on ciprofloxacin and metronidazole and will andrew nue this at discharge. He did improve on this therapy. He specifically reported continuing having some diarrhea with blood in it which resolved prior to discharge. He denied any fevers or chills and required no blood transfusions during this hospital stay he remained hemodynamically stable throughout the entire hospitalization. His white blood cell count initially was 13.7 and improved to 11.11. His hemoglobin remained stable at 17 throughout the hospital stay. At time of discharge she was hemodynamically stable and afebrile and tolerating p.o. He was sent home in stable condition with close primary care follow-up and GI follow-up in 2 to 3 weeks as above to continue the workup of this colitis. Total Time Total Time Spent Total Time Spent (In Minutes): 60 Total Time Includes: Examination of the Patient, Discharge Planning, Medication Reconciliation and Communication With Other Providers Discharge Plan Discharge Items Patient Disposition: Home - Self-Care Reason For Visit: MELENA, COLITIS Discharge Diagnosis: colitis-uncertain etiology, improved smoking Condition on Discharge: Good Activity: Resume your previous activity Non-emergency contact: Primary Care Provider and Jar Capper Call non-emergency contact if: you have any medication questions Follow-up/Referrals: PCPSHELLEY [Primary Care Provider] - Diet: Regular Addtl Attending Provider Instructions: Please take all medications as instructed on discharge list below. It is recommended that you follow-up with [facility] gastroenterology for further work-up of your colon inflammation. It is recommended that you follow-up with your primary care physician within 1 week of hospital discharge to ensure your pain has resolved and you are doing well on antibiotic therapy. This is also to ensure you have a follow-up referral if needed to [facility] gastroenterology. You have been provided with a medication called Protonix which you should take until you are seen by gastroenterology. Please strongly consider quitting smoking as this is terrible for your health. You have been provided NicoDerm supplementation to use in this effort. It was a pleasure taking care of you! Please call if you have any questions or problems. You can reach a [facility] hospitalist on duty at [facility] 24 hours a day by calling [phone]. Take care of yourself. Alma Bauman DO [facility] Hospitalist Pending Studies at Discharge: No Stand-Alone Forms: My [facility], Smoking Cessation Medications and DC Order Prescriptions: New ciprofloxacin HCl 500 mg Tablet 500 mg PO BID Qty: 14 RF: 0 metronidazole 500 mg Tablet 500 mg PO TID Qty: 21 RF: 0 nicotine [Nicoderm CQ] 21 mg/24 hr patch 24 hour 1 patch transdermal DAILY Qty: 14 RF: 0 pantoprazole 40 mg Tablet,Delayed Release (Dr/Ec) 40 mg PO BID Qty: 60 RF: 0 acetaminophen-codeine 300-30 mg Tablet 1 tab PO Q4H PRN (Reason: severe pain (scale score 7-10)) Qty: 15 RF: 0 Continued aspirin [Adult Low Dose Aspirin] 81 mg Tablet,Delayed Release (Dr/Ec) 81 mg PO QAM RF: 0 metoprolol tartrate [Lopressor] 50 mg tablet 50 mg PO QAM RF: 0 nitroglycerin [Nitrostat] 0.4 mg tablet, sublingual 0.4 mg sublingual UD RF: 0 albuterol sulfate [Ventolin HFA] 90 mcg/actuation HFA aerosol inhaler 2 puff INHALATION Q4H PRN (Reason: Shortness Of Breath) RF: 0 rosuvastatin [Crestor] 40 mg tablet 40 mg PO QAM RF: 0 Discharge Orders: Discharge Order (Routine); Ordered 11/06/20 Ordered By: Alma Bauman Admission Data Admit Date/Time: 11/04/20 07:45 Attending Provider: Alma Bauman Admit Provider: Jin Pearl Primary Care Provider: PCP,NO Other Providers: Jin Pearl ; Louise Mortensen ; Joann Amador ; Vahe Jaime ; Blanca Wu ; Devin Wilson ; Tierra Felder ; Jenny Wagner ; Javier Paulson ; Dawit Velazquez ; Sarah Wen ; Jennifer Akhtar ; Malena Champion ; Natalie Krueger ; Maureen Sanchez
== END 2020-11-06 12:15 | disposition home or self-care (01) | DRG 392 ==
LOC: ED 03:18 → 2N 07:45 → 3W 11-05 22:48